=== PATIENT | male | born 1955 | race African-American/Black ===

== ENCOUNTER 2016-04-03 14:06 | Emergency (ER) | payer OTHER ==
[~2016-04-03] VITALS: Ht 188 cm; Wt 76.0 kg
[~2016-04-03 14:06] MED LIST: RANI150 PO
[2016-04-03 14:14] VITALS: BP 121/79; PULSE 84; RESP 18; TEMP 98.6; O2SAT 98
[2016-04-03 14:19] VITALS: BP 121/79; PULSE 84; RESP 18; TEMP 98.6; O2SAT 98
[2016-04-03] MEDS ORDERED: ZANT150T2 PO (14:32)
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
[2016-04-03] MEDS ORDERED: TRAM50TA PO (15:53)
== END 2016-04-03 16:16 | disposition home or self-care (01) ==
LOC: NEPB 14:06
DX: S09.90XA Unspecified injury of head, initial encounter (principal); V19.00XA Pedal cycle driver injured in collision with unspecified motor vehicles in nontraffic accident, initial encounter; Y93.55 Activity, bike riding; Y92.9 Unspecified place or not applicable; Y99.9 Unspecified external cause status
CPT/HCPCS: 70450; 71010; 72125; 72170

== ENCOUNTER 2016-10-05 05:41 | Inpatient (IN) | payer OTHER ==
[~2016-10-05] VITALS: Ht 185.4 cm; Wt 67.0 kg
[2016-10-05] VITALS (11 sets, daily range): BP systolic 109–142; BP diastolic 65–86; PULSE 73–97; RESP 17–26; TEMP 96.7–98.6; O2SAT 94–100
[~2016-10-05 05:41] MED LIST changes: -RANI150 PO; +TRAM50TA PO; +ZANT150T2 PO
--- NOTE | 2016-10-05 06:11 | PD ---
HPI Chief Complaint: Respiratory Distress Time Seen by Provider: 05:54 Travel History International Travel<30 days: No Contact w/Intl Traveler<30days: No Traveled to known affect area: No History of Present Illness HPI 61-year-old male presents by ambulance with note of 2 day history of cough, congestion and general ill feeling. He denies any sick contacts. He presents by ambulance. His initial room air oxygen level was 86%. He does not normally wear oxygen. He denies any other concurrent complaints but is drowsy and difficult to get history from on initial evaluation [facility] Past Medical History Cancer: No Cardiovascular Problems: Yes (ARRHYTHMIA) Diabetes: No GERD: Yes Hepatitis: No Hiatal Hernia: Yes (REPAIRED, GERD, ULCER DISEASE) Inguinal Hernia: Yes (x2) Medical other: No Respiratory: No Thyroid Disease: No Tetanus Vaccination: Unknown Influenza Vaccination: No Past Surgical History Abdominal Surgery: Yes (HIATAL HERNIA REPAIR) Pacemaker: No Other Surgery: Yes (Inguinal hernia repair x2) Social History Alcohol Use: Yes (DAILY 12 beers) Tobacco Use: Yes Substance Use: Yes (MARIJUANA, COCAINE) Allergies-Medications (Allergen,Severity, Reaction): Coded Allergies: No Known Allergies (Unverified , 07/04/14) Reported Meds & Prescriptions Reported Meds & Active Scripts Active Reported Zantac (Ranitidine HCl) 150 Mg Tab 150 Mg PO DAILY Review of Systems ROS Limitations: Poor Historian Physical Exam Exam Limitations: Poor Historian Narrative GENERAL: Well-nourished, well-developed patient. SKIN: Warm and dry. HEAD: Normocephalic and atraumatic. EYES: No injection or drainage. ENT: No nasal drainage noted. NECK: Supple, trachea midline. CARDIOVASCULAR: Tachycardic rate and regular rhythm RESPIRATORY: Decreased aeration bilaterally. No accessory muscle use. GASTROINTESTINAL: Abdomen soft, non-tender, nondistended. EXTREMITIES: No edema. NEUROLOGICAL: Drowsy but opens eyes to voice, moves all extremities, slow speech Data Data Last Documented VS Vital Signs Date Time Temp Pulse Resp B/P Pulse Ox O2 Delivery O2 Flow Rate FiO2 10/05/16 06:13 95 Nasal Cannula 4.00 10/05/16 05:44 98.6 97 26 109/68 Orders Electrocardiogram (10/05/16 05:59) Complete Blood Count With Diff (10/05/16 05:59) Comprehensive Metabolic Panel (10/05/16 05:59) Prothrombin Time / Inr (Pt) (10/05/16 05:59) Act Partial Throm Time (Ptt) (10/05/16 05:59) Lactic Acid Sepsis Protocol (10/05/16 05:59) Magnesium (Mg) (10/05/16 05:59) Phosphorus (Po4) (10/05/16 05:59) Ckmb (Isoenzyme) Profile (10/05/16 05:59) Troponin I (10/05/16 05:59) Urinalysis - C+S If Indicated (10/05/16 05:59) Influenzae A/B Antigen (10/05/16 05:59) Blood Culture (10/05/16 05:59) Chest, Single Ap (10/05/16 05:59) Ecg Monitoring (10/05/16 05:59) Iv Access Insert/Monitor (10/05/16 05:59) Oximetry (10/05/16 05:59) Albuterol-Ipratropium Neb (Duoneb Neb) (10/05/16 06:15) Methylprednisolone So Succ Inj (Solumedr (10/05/16 06:15) Sodium Chlorid 0.9% 500 Ml Inj (Ns 500 M (10/05/16 06:30) B-Type Natriuretic Peptide (10/05/16 06:22) CKMB (10/05/16 06:00) CKMB% (10/05/16 06:00) Albuterol-Ipratropium Neb (Duoneb Neb) (10/05/16 06:45) Labs Laboratory Tests Test 10/05/16 06:00 White Blood Count 11.9 TH/MM3 Red Blood Count 4.00 MIL/MM3 Hemoglobin 12.3 GM/DL Hematocrit 37.5 % Mean Corpuscular Volume 93.8 FL Mean Corpuscular Hemoglobin 30.7 PG Mean Corpuscular Hemoglobin 32.7 % Concent Red Cell Distribution Width 13.7 % Platelet Count 229 TH/MM3 Mean Platelet Volume 8.8 FL Neutrophils (%) (Auto) 73.2 % Lymphocytes (%) (Auto) 15.5 % Monocytes (%) (Auto) 10.4 % Eosinophils (%) (Auto) 0.4 % Basophils (%) (Auto) 0.5 % Neutrophils # (Auto) 8.7 TH/MM3 Lymphocytes # (Auto) 1.8 TH/MM3 Monocytes # (Auto) 1.2 TH/MM3 Eosinophils # (Auto) 0.0 TH/MM3 Basophils # (Auto) 0.1 TH/MM3 CBC Comment DIFF FINAL Differential Comment Prothrombin Time 11.0 SEC Prothromb Time International 1.0 RATIO Ratio Activated Partial 25.0 SEC Thromboplast Time Sodium Level 137 MEQ/L Potassium Level 3.2 MEQ/L Chloride Level 103 MEQ/L Carbon Dioxide Level 19.5 MEQ/L Anion Gap 15 MEQ/L Blood Urea Nitrogen 13 MG/DL Creatinine 1.12 MG/DL Estimat Glomerular Filtration 81 ML/MIN Rate Random Glucose 171 MG/DL Calcium Level 8.1 MG/DL Phosphorus Level 2.2 MG/DL Magnesium Level 2.3 MG/DL Total Bilirubin 0.3 MG/DL Aspartate Amino Transf 27 U/L (AST/SGOT) Alanine Aminotransferase 21 U/L (ALT/SGPT) Alkaline Phosphatase 57 U/L Total Creatine Kinase 249 U/L Troponin I LESS THAN 0.02 NG/ML Total Protein 7.3 GM/DL Albumin 3.3 GM/DL [facility] Medical Decision Making Medical Screen Exam Complete: Yes Emergency Medical Condition: Yes Medical Record Reviewed: Yes (past history confirmed) Interpretation(s) EKG is sinus tachycardia at [address] segment changes or consecutive T- wave inversion Differential Diagnosis Pneumonia, sepsis, anemia, renal failure, COPD Narrative Course Will check blood work, chest x-ray and dose with DuoNeb and Solu-Medrol and reevaluate Physician Communication Physician Communication dr richardson will follow labs and admit Anine Cooper MD Oct 05, 2016 06:11
[2016-10-05] MEDS ORDERED: RESP: ALBUTEROL 2.5 MG/IPRATROPIUM 0.5 MG NEB (SCH) NEB ONE ×2 (06:15→06:45)
[2016-10-05] MEDS ORDERED: methylPREDNISolone SOD SUCC 125 MG/2 ML VIAL IV PUSH ONE (06:15)
[2016-10-05] MEDS ORDERED: SODIUM CHLORID 0.9% 500 ML INJ 500 ML IV ONE (06:30)
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
[2016-10-05 06:34] LABS: AUTOMATED NEUTROPHIL # 8.7 TH/MM3 (1.8-7.7); BASOPHIL # 0.1 TH/MM3 (0-0.2); BASOPHIL % 0.5 % (0.0-2.0); EOSINOPHIL % 0.4 % (0.0-4.0); HEMATOCRIT 37.5 % (39.0-51.0); HEMO FLAGS DIFF FINAL; LYMPH % 15.5 % (9.0-44.0); LYMPHOCYTE # 1.8 TH/MM3 (1.0-4.8); MEAN CELL VOLUME 93.8 FL (80.0-100.0); MEAN CORPUSCULAR HEMOGLOBIN 30.7 PG (27.0-34.0); MEAN CORPUSCULAR HGB CONC 32.7 % (32.0-36.0); MONO % 10.4 % (0.0-8.0); NEUT % 73.2 % (16.0-70.0); PLATELET COUNT 229 TH/MM3 (150-450); RED CELL DISTRIBUTION WIDTH 13.7 % (11.6-17.2); WHITE BLOOD COUNT 11.9 TH/MM3 (4.0-11.0)
[2016-10-05 06:41] LABS: ALT (GPT) 21 U/L (12-78); ANION GAP 15 MEQ/L (5-15); AST (GOT) 27 U/L (15-37); BICARBONATE 19.5 MEQ/L (21.0-32.0); BLOOD UREA NITROGEN 13 MG/DL (7-18); CHLORIDE 103 MEQ/L (98-107); GLOMERULAR FILTRATION RATE 81 ML/MIN (>89); MAGNESIUM 2.3 MG/DL (1.5-2.5); POTASSIUM 3.2 MEQ/L (3.5-5.1); SODIUM (NA) 137 MEQ/L (136-145)
[2016-10-05 06:45] LABS: ALKALINE PHOSPHATASE 57 U/L (45-117); CREATINE KINASE 249 U/L (39-308); TOTAL BILIRUBIN ADULT 0.3 MG/DL (0.2-1.0)
[2016-10-05 06:57] LABS: CKMB 3.2 NG/ML (0.5-3.6)
--- NOTE | 2016-10-05 07:00 | PD ---
Physical Exam Date Seen by Provider: Oct 05, 2016 Time Seen by Provider: 06:57 Narrative The patient is a 61-year-old male who was initially evaluated by the previous physician, Dr. Cooper. Please refer to the initial history, physical, diagnostic evaluation, treatment modality plan. The patient was signed out at 7 AM with reevaluation and pending admission pending. Data Data Last Documented VS Vital Signs Date Time Temp Pulse Resp B/P Pulse Ox O2 Delivery O2 Flow Rate FiO2 10/05/16 06:13 95 Nasal Cannula 4.00 10/05/16 05:44 98.6 97 26 109/68 Orders Electrocardiogram (10/05/16 05:59) Complete Blood Count With Diff (10/05/16 05:59) Comprehensive Metabolic Panel (10/05/16 05:59) Prothrombin Time / Inr (Pt) (10/05/16 05:59) Act Partial Throm Time (Ptt) (10/05/16 05:59) Lactic Acid Sepsis Protocol (10/05/16 05:59) Magnesium (Mg) (10/05/16 05:59) Phosphorus (Po4) (10/05/16 05:59) Ckmb (Isoenzyme) Profile (10/05/16 05:59) Troponin I (10/05/16 05:59) Urinalysis - C+S If Indicated (10/05/16 05:59) Influenzae A/B Antigen (10/05/16 05:59) Blood Culture (10/05/16 05:59) Chest, Single Ap (10/05/16 05:59) Ecg Monitoring (10/05/16 05:59) Iv Access Insert/Monitor (10/05/16 05:59) Oximetry (10/05/16 05:59) Albuterol-Ipratropium Neb (Duoneb Neb) (10/05/16 06:15) Methylprednisolone So Succ Inj (Solumedr (10/05/16 06:15) Sodium Chlorid 0.9% 500 Ml Inj (Ns 500 M (10/05/16 06:30) B-Type Natriuretic Peptide (10/05/16 06:22) CKMB (10/05/16 06:00) CKMB% (10/05/16 06:00) Albuterol-Ipratropium Neb (Duoneb Neb) (10/05/16 06:45) Azithromycin Inj (Zithromax Inj) (10/05/16 07:15) Sodium Chlor 0.9% 1000 Ml Inj (Ns 1000 M (10/05/16 07:15) Admit Order (Ed Use Only) (10/05/16 07:24) Ceftriaxone Inj (Rocephin Inj) (10/05/16 07:30) Labs Laboratory Tests Test 10/05/16 10/05/16 06:00 06:20 White Blood Count 11.9 TH/MM3 Red Blood Count 4.00 MIL/MM3 Hemoglobin 12.3 GM/DL Hematocrit 37.5 % Mean Corpuscular Volume 93.8 FL Mean Corpuscular Hemoglobin 30.7 PG Mean Corpuscular Hemoglobin 32.7 % Concent Red Cell Distribution Width 13.7 % Platelet Count 229 TH/MM3 Mean Platelet Volume 8.8 FL Neutrophils (%) (Auto) 73.2 % Lymphocytes (%) (Auto) 15.5 % Monocytes (%) (Auto) 10.4 % Eosinophils (%) (Auto) 0.4 % Basophils (%) (Auto) 0.5 % Neutrophils # (Auto) 8.7 TH/MM3 Lymphocytes # (Auto) 1.8 TH/MM3 Monocytes # (Auto) 1.2 TH/MM3 Eosinophils # (Auto) 0.0 TH/MM3 Basophils # (Auto) 0.1 TH/MM3 CBC Comment DIFF FINAL Differential Comment Prothrombin Time 11.0 SEC Prothromb Time International 1.0 RATIO Ratio Activated Partial 25.0 SEC Thromboplast Time Sodium Level 137 MEQ/L Potassium Level 3.2 MEQ/L Chloride Level 103 MEQ/L Carbon Dioxide Level 19.5 MEQ/L Anion Gap 15 MEQ/L Blood Urea Nitrogen 13 MG/DL Creatinine 1.12 MG/DL Estimat Glomerular Filtration 81 ML/MIN Rate Random Glucose 171 MG/DL Lactic Acid Level 5.4 mmol/L Calcium Level 8.1 MG/DL Phosphorus Level 2.2 MG/DL Magnesium Level 2.3 MG/DL Total Bilirubin 0.3 MG/DL Aspartate Amino Transf 27 U/L (AST/SGOT) Alanine Aminotransferase 21 U/L (ALT/SGPT) Alkaline Phosphatase 57 U/L Total Creatine Kinase 249 U/L Creatine Kinase MB 3.2 NG/ML Troponin I LESS THAN 0.02 NG/ML Total Protein 7.3 GM/DL Albumin 3.3 GM/DL B-Type Natriuretic Peptide 11 PG/ML [facility] Medical Record Reviewed: Yes Supervised Visit with NELLIE: No Interpretation(s) Lactic acid 5.4 Last Impressions Chest X-Ray 10/05/16 0559 Signed Impressions: Service Date/Time: Wednesday, October 05, 2016 05:56 - CONCLUSION: 1. Subsegmental atelectasis both bases. García Dial MD Laboratory Tests Test 10/05/16 10/05/16 06:00 06:20 White Blood Count 11.9 TH/MM3 Red Blood Count 4.00 MIL/MM3 Hemoglobin 12.3 GM/DL Hematocrit 37.5 % Mean Corpuscular Volume 93.8 FL Mean Corpuscular Hemoglobin 30.7 PG Mean Corpuscular Hemoglobin 32.7 % Concent Red Cell Distribution Width 13.7 % Platelet Count 229 TH/MM3 Mean Platelet Volume 8.8 FL Neutrophils (%) (Auto) 73.2 % Lymphocytes (%) (Auto) 15.5 % Monocytes (%) (Auto) 10.4 % Eosinophils (%) (Auto) 0.4 % Basophils (%) (Auto) 0.5 % Neutrophils # (Auto) 8.7 TH/MM3 Lymphocytes # (Auto) 1.8 TH/MM3 Monocytes # (Auto) 1.2 TH/MM3 Eosinophils # (Auto) 0.0 TH/MM3 Basophils # (Auto) 0.1 TH/MM3 CBC Comment DIFF FINAL Differential Comment Prothrombin Time 11.0 SEC Prothromb Time International 1.0 RATIO Ratio Activated Partial 25.0 SEC Thromboplast Time Sodium Level 137 MEQ/L Potassium Level 3.2 MEQ/L Chloride Level 103 MEQ/L Carbon Dioxide Level 19.5 MEQ/L Anion Gap 15 MEQ/L Blood Urea Nitrogen 13 MG/DL Creatinine 1.12 MG/DL Estimat Glomerular Filtration 81 ML/MIN Rate Random Glucose 171 MG/DL Calcium Level 8.1 MG/DL Phosphorus Level 2.2 MG/DL Magnesium Level 2.3 MG/DL Total Bilirubin 0.3 MG/DL Aspartate Amino Transf 27 U/L (AST/SGOT) Alanine Aminotransferase 21 U/L (ALT/SGPT) Alkaline Phosphatase 57 U/L Total Creatine Kinase 249 U/L Creatine Kinase MB 3.2 NG/ML Troponin I LESS THAN 0.02 NG/ML Total Protein 7.3 GM/DL Albumin 3.3 GM/DL B-Type Natriuretic Peptide 11 PG/ML Date/Time Procedure Status Source Growth 10/05/16 06:00 Aerobic Blood Culture Received Blood Peripheral Pending 10/05/16 06:00 Anaerobic Blood Culture Received Blood Peripheral Pending 10/05/16 06:00 Aerobic Blood Culture Received Blood Peripheral Pending 10/05/16 06:00 Anaerobic Blood Culture Received Blood Peripheral Pending 10/05/16 06:05 Influenza Types A,B Antigen (BRENDAN) - Final Complete Nasal Aspirate NEGATIVE FOR FLU A AND B ANTIGEN.... Differential Diagnosis Differential diagnosis includes COPD exacerbation, bronchitis, hypoxia, pulmonary embolism, acute coronary syndrome, pleural effusion, pneumonia, congestive heart failure, pulmonary edema pending. Narrative Course The patient was initially evaluated by the previous physician. Please refer to the initial history, physical, diagnostic evaluation, and treatment modality plan. The patient was signed out at 7 AM a lactic acid and BNP pending. Previous physician states the patient initially had a O2 saturation of 85% on room air with diminished breath sounds. Chest x-ray reveals atelectasis. Patient does have tachypnea with hypoxia requiring oxygen, therefore, will be admitted to the on-call medical service. BNP was 11, no evidence of pulmonary edema or congestive heart failure. The patient's lactic acid was 5.4, likely secondary to hypoxia upon initial presentation with O2 sat of 85% on room air according to the previous physician. Patient is afebrile, chest x-ray reveals no evidence of pneumonia, but patient will be treated with Rocephin and Zithromax. Blood cultures have already been sent to lab. The patient was administered a second liter of IV fluids secondary to lactic acidosis. I discussed the patient will call medical service, Dr. Triana, who agrees with admission. Sepsis Criteria SIRS Criteria (2 or more): Heart rate over 90, RR > 20 or PaCO2 < 32 Septic Shock Criteria: Lactic acid >=4 Criteria Outcome: Meets SIRS criteria Physician Communication Physician Communication The on-call medical service was paged for admission. I discussed the patient Dr. Triana who agrees with admission. Diagnosis Primary Impression: COPD exacerbation Additional Impressions: Dyspnea Qualified Code: R06.00 - Dyspnea, unspecified type Hypoxia Lactic acidosis Admitting Information Admitting Physician Requests: Admit Condition: Stable Sumit Morgan MD Oct 05, 2016 07:00
[2016-10-05] MEDS ORDERED: AZITHROMYCIN INJ 500 MG in SODIUM CHLOR 0.9% 250 ML INJ 250 ML IV ONE (07:15)
[2016-10-05] MEDS ORDERED: SODIUM CHLOR 0.9% 1000 ML INJ 1,000 ML IV ONE (07:15)
[2016-10-05] MEDS ORDERED: cefTRIAXone INJ 1,000 MG in SODIUM CHLORIDE 0.9% INJ 100 ML IV ONE (07:30)
[2016-10-05] MEDS ORDERED: SODIUM CHLORIDE 0.9% FLUSH 10 ML FLUSH IV FLUSH PRN (07:30)
[2016-10-05] MEDS: ENOXAPARIN SODIUM 40 MG/0.4 ML SYRINGE SQ SCH (07:47)
[2016-10-05] MEDS: SODIUM CHLORIDE 0.9% FLUSH 10 ML FLUSH IV FLUSH SCH ×2 (07:48→21:00)
[2016-10-05] MEDS ORDERED: RESP: ALBUTEROL 2.5 MG/3 ML NEB (PRN) INH (08:00)
[2016-10-05 08:08] LABS: BACTERIA, URINE MANY /hpf; BLOOD, URINE SMALL (NEG); GLUCOSE,URINE TRACE mg/dL (NEG); HYALINE CAST, URINE 3 /lpf (RARE); KETONE, URINE NEG (NEG); MUCUS URINE FEW /lpf (OCC); NITRITE,URINE NEG (NEG); PH, URINE 5.5 (5.0-8.5); URINE COLOR YELLOW (YELLW/STRAW)
[2016-10-05 08:09] LABS: COMMENT (UR) CATH-CULTURE IND; CULTURE IF INDICATED CATH CULTURE IND
[2016-10-05 08:13] LABS: LACTIC ACID GHOST NOT REPORTABLE
[2016-10-05] MEDS: RESP: ALBUTEROL 2.5 MG/IPRATROPIUM 0.5 MG NEB (SCH) INH ×3 (09:34→19:38)
[2016-10-05] MEDS ORDERED: methylPREDNISolone SOD SUCC 125 MG/2 ML VIAL IVP SCH (12:00)
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
--- NOTE | 2016-10-05 13:30 | EKG ---
Date Performed: 10/05/2016 Time Performed: 05:45:07 PTAGE: 61 years EKG: SINUS TACHYCARDIA POSSIBLE LEFT ATRIAL ENLARGEMENT ABNORMAL RHYTHM ECG PREVIOUS TRACING 07/20/2010 06.58.24 Since previous tracing, no significant change noted DOCTOR: Gage Ge Interpretating Date/Time 10/05/2016 13:28:57
[2016-10-05] MEDS ORDERED: LORazepam 2 MG/ML VIAL IV PUSH PRN ×4 (13:45)
[2016-10-05] MEDS ORDERED: FLUMAZENIL 0.5 MG/5 ML VIAL IV PUSH PRN (13:45)
[2016-10-05] MEDS ORDERED: LORazepam 1 MG TAB PO PRN (13:45)
[2016-10-05] MEDS ORDERED: LORazepam 2 MG TAB PO PRN (13:45)
[2016-10-05] MEDS ORDERED: guaiFENesin/DEXTROMETHORPHAN 200 MG/20 MG/10 ML CUP PO PRN (16:30)
[2016-10-05] MEDS ORDERED: POTASSIUM CHLORIDE 25 MEQ EFFERVESCENT TAB PO ONE (17:00)
[2016-10-05] MEDS: SODIUM CHLOR 0.9% 1000 ML INJ 1,000 ML IV SCH (18:24)
[2016-10-06] VITALS (9 sets, daily range): BP systolic 112–125; BP diastolic 65–98; PULSE 72–82; RESP 17–18; TEMP 96.3–97.8; O2SAT 98–100
[2016-10-06] MEDS: RESP: ALBUTEROL 2.5 MG/IPRATROPIUM 0.5 MG NEB (SCH) INH ×4 (04:30→22:00)
[2016-10-06] MEDS: SODIUM CHLOR 0.9% 1000 ML INJ 1,000 ML IV SCH ×2 (06:25→16:38)
[2016-10-06] MEDS: SODIUM CHLORIDE 0.9% FLUSH 10 ML FLUSH IV FLUSH SCH ×2 (08:37→19:57)
[2016-10-06] MEDS: FOLIC ACID 1 MG TAB PO SCH (08:43)
[2016-10-06] MEDS: MULTIVITAMINS/MINERALS THERAPEUTIC TAB PO SCH (08:43)
[2016-10-06] MEDS: AZITHROMYCIN 250 MG TAB PO SCH (08:43)
[2016-10-06] MEDS: ENOXAPARIN SODIUM 40 MG/0.4 ML SYRINGE SQ SCH (08:43)
[2016-10-06] MEDS: THIAMINE HCL 100 MG TAB PO SCH (08:43)
[2016-10-06] MEDS: cefTRIAXone INJ 1,000 MG in SODIUM CHLORIDE 0.9% INJ 100 ML IV SCH (08:44)
--- NOTE | 2016-10-06 10:35 | HHI.PR ---
Subjective Remarks No acute events overnight. Afebrile, vital signs stable. Patient states he is still short of breath although he feels he is improving. Continues to require oxygen. Endorses productive cough. Requests Zantac for his heartburn. Objective Vitals Vital Signs Date Time Temp Pulse Resp B/P Pulse Ox O2 Delivery O2 Flow Rate FiO2 10/06/16 09:34 99 Nasal Cannula 2.00 10/06/16 08:00 97.1 72 18 121/81 99 10/06/16 04:32 99 Nasal Cannula 2.50 10/06/16 04:00 97.8 75 17 118/65 98 10/06/16 00:00 97.6 74 18 121/68 100 10/05/16 20:00 98.3 94 17 116/79 97 10/05/16 19:40 97 Nasal Cannula 2.50 10/05/16 16:00 97.3 74 20 142/86 100 10/05/16 12:28 96.7 73 19 119/70 95 10/05/16 10:45 97.9 85 20 120/77 96 I/O 10/05/16 10/05/16 10/05/16 10/06/16 10/06/16 10/06/16 06:59 14:59 22:59 06:59 14:59 22:59 Intake Total 360 ml 240 ml 1292 ml Output Total 1000 ml Balance 360 ml 240 ml 292 ml Intake Oral 360 ml 240 ml 120 ml IV Total 1172 ml Output Urine Total 1000 ml # Bowel Movements 0 0 Result Diagram: 10/05/16 0600 10/05/16 0600 Objective Remarks GENERAL: Well-nourished, well-developed middle aged male patient in [facility]. SKIN: Warm and dry. No rash. HEAD: Normocephalic. Atraumatic. EYES: Pupils equal and round. No scleral icterus. No injection or drainage. ENT: No nasal bleeding or discharge. Mucous membranes pink and moist. NECK: Supple. Trachea midline. CARDIOVASCULAR: Regular rate and rhythm. S1, S2 noted. No murmur appreciated. RESPIRATORY: No accessory muscle use. Scattered rhonchi and upper airway congestion. Breath sounds equal bilaterally. GASTROINTESTINAL: Abdomen soft, non-tender, nondistended. Normoactive bowel sounds x4. MUSCULOSKELETAL: No obvious deformities. Extremities without clubbing, cyanosis , or edema. NEUROLOGICAL: Awake and alert. No obvious cranial nerve deficits. Motor grossly within normal limits. Normal speech. PSYCHIATRIC: Appropriate mood and affect; insight and judgment normal. A/P Problem List: (1) Pneumonia ICD Code: J18.9 Status: Acute (2) Severe sepsis ICD Code: A41.9 Status: Acute (3) Lactic acidosis ICD Code: E87.2 Status: Acute Assessment and Plan 61-year-old homeless male with history of tobacco use, alcohol abuse, GERD, unknown arrhythmia, presents with a 3 day history of cough, congestion, shortness of breath. Severe Sepsis with Acute Bronchitis, suspected early Pneumonia: +productive cough/congestion and fevers/chills x3 days. CXR images shows bibasilar atelectasis, no acute infiltrate. Influenza negative. Blood, urine cultures pending. Continue on antibiotics with IV Rocephin/Azithro. Continue IVF hydration. Supportive treatment with Robitussin prn, Duonebs q6h. UTI. Urine culture pending. Continue Rocephin. Possible underlying COPD: patient never formerly diagnosed with COPD however 30pack year smoking history. Recommend outpatient PFTs when recovered from acute illness. Duonebs q6h. Oxygen when necessary. Patient will need outpatient follow-up, previously seen in community clinic. Case management consult to assist. Tobacco Use: smokes cigars 1PPD. Counseled on cessation. Nicotine patch. Alcohol Abuse: drinks 12+beers daily. Counseled on cessation. Start thiamine/ folate/MV. CIWA protocol. Monitor for withdrawal. Seizure precautions. GERD: chronic, continue Zantac. Hypokalemia: Suspect secondary to decreased oral intake. Given po KCl replacement. Repeat labs in am. Elevated Blood Glucose: random glucose 171. No hx of diabetes. Check HgbA1c. DVT Prophylaxis: teds/SCDs Discharge Planning Likely and 12 days, once patient longer requiring oxygen. Alessia Zepeda MD R3 Oct 06, 2016 10:35
[2016-10-06 10:57] LABS: BASOPHIL % 0.2 % (0.0-2.0); EOSINOPHIL % 0.1 % (0.0-4.0); HEMATOCRIT 36.7 % (39.0-51.0); HEMO FLAGS DIFF FINAL; LYMPH % 20.4 % (9.0-44.0); LYMPHOCYTE # 2.6 TH/MM3 (1.0-4.8); MEAN CELL VOLUME 93.7 FL (80.0-100.0); MEAN CORPUSCULAR HEMOGLOBIN 30.1 PG (27.0-34.0); MEAN CORPUSCULAR HGB CONC 32.2 % (32.0-36.0); NEUT % 71.3 % (16.0-70.0); PLATELET COUNT 253 TH/MM3 (150-450); RED BLOOD COUNT 3.91 MIL/MM3 (4.50-5.90); WHITE BLOOD COUNT 12.6 TH/MM3 (4.0-11.0)
[2016-10-06 11:32] LABS: BICARBONATE 22.9 MEQ/L (21.0-32.0); POTASSIUM 4.1 MEQ/L (3.5-5.1)
[2016-10-06 13:00] LABS: HEMOGLOBIN A1a 1.2 %; HEMOGLOBIN A1b 1.7 %; HEMOGLOBIN Ao 82.6 %; HEMOGLOBIN LA1C 3.5 %; HEMOGLOBIN P3 4.2 %
[2016-10-06] MEDS: RANITIDINE HCL SYRUP 150 MG/10 ML UDC PO SCH (19:57)
[2016-10-07] VITALS (7 sets, daily range): BP systolic 112–121; BP diastolic 59–81; PULSE 68–90; RESP 18; TEMP 96–97; O2SAT 92–100
[2016-10-07] MEDS: SODIUM CHLOR 0.9% 1000 ML INJ 1,000 ML IV SCH (02:18)
[2016-10-07] MEDS: RESP: ALBUTEROL 2.5 MG/IPRATROPIUM 0.5 MG NEB (SCH) INH ×4 (03:47→21:23)
[2016-10-07 06:53] LABS: AUTOMATED NEUTROPHIL # 4.6 TH/MM3 (1.8-7.7); BASOPHIL % 0.2 % (0.0-2.0); EOSINOPHIL % 0.4 % (0.0-4.0); HEMATOCRIT 37.1 % (39.0-51.0); HEMO FLAGS DIFF FINAL; LYMPH % 32.8 % (9.0-44.0); LYMPHOCYTE # 2.5 TH/MM3 (1.0-4.8); MEAN CELL VOLUME 93.8 FL (80.0-100.0); MEAN CORPUSCULAR HEMOGLOBIN 30.6 PG (27.0-34.0); MEAN CORPUSCULAR HGB CONC 32.7 % (32.0-36.0); MONO % 7.1 % (0.0-8.0); NEUT % 59.5 % (16.0-70.0); PLATELET COUNT 267 TH/MM3 (150-450); RED BLOOD COUNT 3.95 MIL/MM3 (4.50-5.90); RED CELL DISTRIBUTION WIDTH 13.9 % (11.6-17.2); WHITE BLOOD COUNT 7.7 TH/MM3 (4.0-11.0)
[2016-10-07 07:20] LABS: BICARBONATE 27.7 MEQ/L (21.0-32.0); POTASSIUM 4.1 MEQ/L (3.5-5.1)
[2016-10-07] MEDS: SODIUM CHLORIDE 0.9% FLUSH 10 ML FLUSH IV FLUSH SCH ×2 (08:18→20:32)
[2016-10-07] MEDS: AZITHROMYCIN 250 MG TAB PO SCH (08:25)
[2016-10-07] MEDS: ENOXAPARIN SODIUM 40 MG/0.4 ML SYRINGE SQ SCH (08:25)
[2016-10-07] MEDS: FOLIC ACID 1 MG TAB PO SCH (08:25)
[2016-10-07] MEDS: MULTIVITAMINS/MINERALS THERAPEUTIC TAB PO SCH (08:25)
[2016-10-07] MEDS: cefTRIAXone INJ 1,000 MG in SODIUM CHLORIDE 0.9% INJ 100 ML IV SCH (08:25)
[2016-10-07] MEDS: RANITIDINE HCL SYRUP 150 MG/10 ML UDC PO SCH ×2 (08:25→20:32)
[2016-10-07] MEDS: THIAMINE HCL 100 MG TAB PO SCH (08:25)
--- NOTE | 2016-10-07 08:51 | HHI.PR ---
Subjective Remarks Patient reports exertional dyspnea still. He still needing oxygen. Cough with coarse breath sounds remains. Objective Vital Signs Date Time Temp Pulse Resp B/P Pulse Ox O2 Delivery O2 Flow Rate FiO2 10/07/16 03:58 96.8 68 18 121/72 99 10/07/16 00:00 96.4 90 18 117/59 98 10/06/16 22:02 99 Nasal Cannula 2.00 10/06/16 20:00 96.3 82 17 112/77 98 10/06/16 16:00 97.6 80 18 125/98 98 10/06/16 12:00 97.8 75 18 124/80 99 10/06/16 09:34 99 Nasal Cannula 2.00 I/O 10/06/16 10/06/16 10/06/16 10/07/16 10/07/16 10/07/16 07:00 15:00 23:00 07:00 15:00 23:00 Intake Total 1292 ml 3176 ml 830 ml Output Total 1000 ml 2325 ml 1000 ml Balance 292 ml 851 ml -170 ml Intake Oral 120 ml 2440 ml 240 ml IV Total 1172 ml 736 ml 590 ml Output Urine Total 1000 ml 2325 ml 1000 ml # Bowel Movements 0 0 0 Result Diagram: 10/07/1661910/07/1620 Objective Remarks GENERAL: NAD, A&Ox3 HEAD: Normocephalic. NECK: Supple, trachea midline. No lymphadenopathy. EYES: No scleral icterus. No injection or drainage. CARDIOVASCULAR: Regular rate and rhythm without murmurs, gallops, or rubs. RESPIRATORY: Breath sounds equal bilaterally. No accessory muscle use. Bilateral rhonchi. GASTROINTESTINAL: Abdomen soft, non-tender, nondistended. MUSCULOSKELETAL: No cyanosis, or edema. SKIN: Warm and dry. NEURO: No focal neurological deficitis. A/P Problem List: (1) Severe sepsis ICD Code: A41.9 (2) Pneumonia ICD Code: J18.9 (3) Lactic acidosis ICD Code: E87.2 (4) Dyspnea ICD Code: R06.00 (5) COPD exacerbation ICD Code: J44.1 (6) Hypoxia ICD Code: R09.02 Assessment and Plan Assessment and plan 61-year-old male admitted with COPD exacerbation and hypoxia with severe sepsis secondary to pneumonia. COPD exacerbation Hypoxia Pneumonia Continue Rocephin and azithromycin Continue breathing treatments Continue duo nebs Continue steroids Continue oxygen supplementation as needed Follow for improvement Wean oxygen as tolerated Severe sepsis Resolved UTI Continue on Rocephin Follow urine cultures Nicotine dependence Continue NicoDerm Patient counseled to quit Alcohol abuse Continue multivitamin, thiamine, folic acid Continue seizure precautions and withdrawal precautions. Patient counseled to quit GERD continue Zantac. Hypokalemia Replace as needed Follow potassium levels Hyperglycemia Follow blood sugars No elevations recently DVT Prophylaxis SCDs Discharge Planning Likely and 12 days, once patient longer requiring oxygen. Problem Qualifiers (1) Dyspnea: Qualified Code: R06.00 - Dyspnea, unspecified type Scott Barriga MD Oct 07, 2016 08:51
[2016-10-08] VITALS: BP 120/74; PULSE 85; RESP 18; TEMP 96.9; O2SAT 96
[2016-10-08 04:00] VITALS: BP 120/69; PULSE 80; RESP 18; TEMP 97.3; O2SAT 97
[2016-10-08] MEDS: RESP: ALBUTEROL 2.5 MG/IPRATROPIUM 0.5 MG NEB (SCH) INH ×2 (04:07→09:43)
[2016-10-08 04:08] VITALS: O2SAT 97
[2016-10-08 08:00] VITALS: BP 113/81; PULSE 83; RESP 16; TEMP 96.2; O2SAT 97
[2016-10-08] MEDS: cefTRIAXone INJ 1,000 MG in SODIUM CHLORIDE 0.9% INJ 100 ML IV SCH (08:58)
[2016-10-08] MEDS: RANITIDINE HCL SYRUP 150 MG/10 ML UDC PO SCH (08:58)
[2016-10-08] MEDS: AZITHROMYCIN 250 MG TAB PO SCH (08:58)
[2016-10-08] MEDS: MULTIVITAMINS/MINERALS THERAPEUTIC TAB PO SCH (08:58)
[2016-10-08] MEDS: THIAMINE HCL 100 MG TAB PO SCH (08:58)
[2016-10-08] MEDS: FOLIC ACID 1 MG TAB PO SCH (08:58)
[2016-10-08] MEDS: ENOXAPARIN SODIUM 40 MG/0.4 ML SYRINGE SQ SCH (08:59)
[2016-10-08] MEDS: SODIUM CHLORIDE 0.9% FLUSH 10 ML FLUSH IV FLUSH SCH (08:59)
[2016-10-08] MEDS ORDERED: LACTTAB8 PO (10:54)
[2016-10-08] MEDS ORDERED: AUGM875T3 PO (10:54)
[2016-10-08] MEDS ORDERED: AZIT250T3 PO (10:54)
--- NOTE | 2016-10-08 10:56 | HHI.DS ---
Discharge Summary Admission Date Oct 05, 2016 at 16:15 Discharge Date: Oct 08, 2016 Admitting Diagnosis COPD exacerbation, hypoxia, lactic acidosis, SIRS (1) Pneumonia ICD Code: J18.9 Diagnosis: Principal (2) Severe sepsis ICD Code: A41.9 Diagnosis: Principal (3) Lactic acidosis ICD Code: E87.2 Diagnosis: Principal Procedures None Brief History - From Admission 61-year-old homeless male with history of tobacco use, alcohol abuse, GERD, unknown arrhythmia, presents with a 3 day history of cough, congestion, shortness of breath. The patient reports his symptoms started with nasal congestion, rhinitis, and cough productive of yellow-green sputum. He reports subjective fevers and severe chills however did not take his temperature. He reports the congestion has now extended into his chest. He has shortness of breath, worse with exertion. He has also noticed wheezing at times. Denies lower extremity edema or weight gain. He complains of rib cage feeling sore from the coughing. Denies odynophagia. Denies nausea/vomiting or diarrhea. He has smoked a pack of cigars daily since he was a teenager. He has never been formerly diagnosed with COPD. He has no other medical complaints at this time. CBC/BMP: 10/07/16 0620 10/07/16 0620 Significant Findings Laboratory Tests Test 10/05/16 10/06/16 10/07/16 17:29 09:40 06:20 Lactic Acid Level 2.1 mmol/L (0.4-2.0) White Blood Count 12.6 TH/MM3 (4.0-11.0) Red Blood Count 3.91 MIL/MM3 3.95 MIL/MM3 (4.50-5.90) (4.50-5.90) Hemoglobin 11.8 GM/DL 12.1 GM/DL (13.0-17.0) (13.0-17.0) Hematocrit 36.7 % 37.1 % (39.0-51.0) (39.0-51.0) Neutrophils (%) (Auto) 71.3 % (16.0-70.0) Neutrophils # (Auto) 9.0 TH/MM3 (1.8-7.7) Monocytes # (Auto) 1.0 TH/MM3 (0-0.9) Chloride Level 109 MEQ/L (98-107) Calcium Level 8.3 MG/DL (8.5-10.1) PE at Discharge GENERAL: Well-nourished, well-developed middle aged male patient in [facility]. SKIN: Warm and dry. No rash. HEAD: Normocephalic. Atraumatic. EYES: Pupils equal and round. No scleral icterus. No injection or drainage. ENT: No nasal bleeding or discharge. Mucous membranes pink and moist. NECK: Supple. Trachea midline. CARDIOVASCULAR: Regular rate and rhythm. S1, S2 noted. No murmur appreciated. RESPIRATORY: No accessory muscle use. Scattered rhonchi and upper airway congestion. Breath sounds equal bilaterally. GASTROINTESTINAL: Abdomen soft, non-tender, nondistended. Normoactive bowel sounds x4. MUSCULOSKELETAL: No obvious deformities. Extremities without clubbing, cyanosis , or edema. NEUROLOGICAL: Awake and alert. No obvious cranial nerve deficits. Motor grossly within normal limits. Normal speech. PSYCHIATRIC: Appropriate mood and affect; insight and judgment normal. Hospital Course Mr. Chaudhry is a 61-year-old male. He was admitted secondary to COPD exacerbation, hypoxia, and pneumonia. His COPD exacerbation and hypoxia have resolved. He no longer has hypoxia and is off oxygen. He was feeling more towards baseline and able to ambulate well. Medically stable for discharge on oral antibiotics today. Pt Condition on Discharge: Stable Discharge Disposition: Discharge Home Discharge Time: <= 30 minutes Discharge Instructions DIET: Follow Instructions for: As Tolerated, No Restrictions Activities you can perform: Regular-No Restrictions Follow up Referrals: PCP Follow-up - 2 Weeks New Medications: Amoxicillin-Clavulanate (Augmentin) 875-125 Mg Tab 1 TAB PO BID Infection #14 Ref 0 TAB Azithromycin (Azithromycin) 250 Mg Tab 250 MG PO DAILY Infection #7 Ref 0 TAB Lactobacillus Acidophilus (Lactobacillus Acidophilus) 1 Tab Tab 1 TAB PO TIDAC Nutritional Supplement #30 Ref 0 TAB Continued Medications: Ranitidine (Zantac) 150 Mg Tab 150 MG PO DAILY Reduce Stomach Acid #30 Ref 0 TAB Scott Barriga MD Oct 08, 2016 10:56
[2016-10-08 12:00] VITALS: BP 116/79; PULSE 97; RESP 16; TEMP 97.3; O2SAT 97
== END 2016-10-08 15:21 | disposition home or self-care (01) | DRG 871 ==
LOC: NEPC 05:41 → INTOOBSV 07:25 → NEDA 07:25 → HOCA 10:15 → OBSVTOIN 16:15
PROVIDERS: ADMIT Hospitalist; ATTEND Hospitalist
DX: A41.9 Sepsis, unspecified organism (principal); J18.9 Pneumonia, unspecified organism; R65.21 Severe sepsis with septic shock; E87.2 Acidosis; J44.0 Chronic obstructive pulmonary disease with (acute) lower respiratory infection; J44.1 Chronic obstructive pulmonary disease with (acute) exacerbation; J98.11 Atelectasis; N39.0 Urinary tract infection, site not specified; K21.9 Gastro-esophageal reflux disease without esophagitis; F10.10 Alcohol abuse, uncomplicated; F12.90 Cannabis use, unspecified, uncomplicated; F14.90 Cocaine use, unspecified, uncomplicated; E87.6 Hypokalemia; J20.9 Acute bronchitis, unspecified; J31.0 Chronic rhinitis; R09.02 Hypoxemia; F17.290 Nicotine dependence, other tobacco product, uncomplicated; Z59.0 Homelessness
CPT/HCPCS: 71010; 80048; 80053; 81001; 82550; 82552; 83036; 83605; 83735; 83880; 84100; 84484; 85025; 85610; 85730; 87040; 87070; 87077; 87086; 87186; 87205; 87804; 93005; 94620; 94640; 94664; 96361; 96374; J0456; J0696; J1650; J2930; J7030; J7040; J7050